=== PATIENT | female | born 1980 | race Caucasian/White ===

== ENCOUNTER 2017-05-21 12:20 | Emergency (ER) | payer OTHER ==
[~2017-05-21] VITALS: Ht 172.7 cm; Wt 121.2 kg
[~2017-05-21 12:20] MED LIST: ALDOMET250 MG PO; CEPHALEXIN500 MG PO; ENDOCET 5-3251 EACH PO; FERROUS SULFAT325 MG PO; FIORICET,ESG1 TABLET PO; IBUPROFEN800 MG PO; IRON; KEFLEX500 MG PO; NIFEDIPINE ER60 MG PO; PERCOCET 5/31 TABLET PO; PHENTERMINE H37.5 MG PO; PRENATAL TABLE1 EAC3 PO; ZOFRAN4 MG PO
[2017-05-21] MEDS ORDERED: NORCO 5/3251 TABLET PO (13:38)
[2017-05-21] MEDS ORDERED: MOTRIN600 MG PO (13:38)
[2017-05-21] MEDS ORDERED: AMOXICILLIN875 MG PO (13:38)
[2017-05-21 13:54] VITALS: BP 128/101
== END 2017-05-21 13:55 | disposition home or self-care (01) ==
LOC: EME 12:20
DX: K08.89 Other specified disorders of teeth and supporting structures (principal)
CPT/HCPCS: 99281; 99284

== ENCOUNTER 2017-11-27 17:04 | Inpatient (IN) | payer OTHER ==
[~2017-11-27] VITALS: Ht 172.7 cm; Wt 117.5 kg
[~2017-11-27 17:04] MED LIST changes: +AMOXICILLIN875 MG PO; +MOTRIN600 MG PO; +NORCO 5/3251 TABLET PO
[2017-11-27 18:19] LABS: HEMATOCRIT 38.1 % (36.0-46.0); HEMOGLOBIN 12.1 G/DL (11.9-15.5); MCH 24.5 PG (29.0-34.0); MCHC 31.8 G/DL (30.0-36.0); MCV 77.1 FL (83-99); PLATELET COUNT 292 K/uL (156-360); RBC DIS.WIDTH-CV 15.2 % (11.8-14.6); RBC DIS.WIDTH-SD 42.6 % (39-53); RED BLOOD COUNT 4.94 M/uL (3.80-5.20); WHITE BLOOD COUNT 9.4 K/uL (4.1-10.2)
[2017-11-27 18:29] LABS: CHLORIDE 108 mEq/L (99-109); POTASSIUM 3.4 mEq/L (3.7-5.4); SODIUM 141 mEq/L (136-147)
[2017-11-27 18:31] LABS: GLUCOSE 76 mg/dL (70-99)
[2017-11-27 18:34] LABS: CREATININE 0.7 mg/dL (0.6-1.3); GFR ESTIMATE (CALCULATED) > 59 mL/min/
[2017-11-27 18:35] LABS: UREA NITROGEN (BUN) 11 mg/dL (9-23)
[2017-11-27 18:43] LABS: QUANTITATIVE HCG < 4.0 MIU/ML
[2017-11-27] MEDS ORDERED: HYDROCHLOROTHIA25 MG PO (22:27)
[2017-11-27] MEDS ORDERED: ADVIL,NUPRIN,M200 MG PO (22:28)
[2017-11-27] MEDS ORDERED: TYLENOL EXTRA500 MG PO (22:28)
[2017-11-28 02:26] VITALS: BP 161/92
[2017-11-28 07:53] VITALS: BP 146/87
[2017-11-28 11:27] VITALS: BP 165/101
[2017-11-28 15:21] VITALS: BP 143/89
[2017-11-28 20:09] VITALS: BP 194/97
[2017-11-29 00:08] VITALS: BP 151/81
[2017-11-29 03:27] VITALS: BP 130/75
[2017-11-29 07:59] VITALS: BP 157/92
[2017-11-29] MEDS ORDERED: LEVETIRACETAM500 MG PO (10:02)
[2017-11-29] MEDS ORDERED: ZOLPIDEM TARTRAT5 MG PO (10:02)
[2017-11-29] MEDS ORDERED: ENDOCET 5-3251 EACH PO (10:02)
[2017-11-29] MEDS ORDERED: DEXAMETHASONE4 MG PO (10:02)
[2017-11-29] MEDS ORDERED: LABETALOL HCL100 MG PO (10:02)
[2017-11-29 16:16] VITALS: BP 161/92
[2017-11-29 20:58] VITALS: BP 168/80
[2017-11-29 23:11] VITALS: BP 139/69
[2017-11-30 04:53] VITALS: BP 139/79
[2017-11-30 06:10] LABS: HEMATOCRIT 36.2 % (36.0-46.0); HEMOGLOBIN 11.4 G/DL (11.9-15.5); MCH 24.4 PG (29.0-34.0); MCHC 31.5 G/DL (30.0-36.0); MCV 77.5 FL (83-99); PLATELET COUNT 282 K/uL (156-360); RBC DIS.WIDTH-CV 15.6 % (11.8-14.6); RBC DIS.WIDTH-SD 43.5 % (39-53); RED BLOOD COUNT 4.67 M/uL (3.80-5.20); WHITE BLOOD COUNT 12.7 K/uL (4.1-10.2)
[2017-11-30 06:46] LABS: ALBUMIN 3.6 G/DL (3.2-4.8); ALKALINE PHOSPHATASE 59 IU/L (3-129); ALT (GPT) 22 IU/L (3-49); AST (GOT) 15 IU/L (2-34); CHLORIDE 106 MEQ/L (99-109); CREATININE 0.6 MG/DL (0.6-1.3); GFR ESTIMATE (CALCULATED) > 59 mL/min/; SODIUM 137 MEQ/L (136-147); TOTAL BILIRUBIN 0.3 MG/DL (0.0-1.0); TOTAL PROTEIN 6.6 G/DL (6.4-8.3); UREA NITROGEN (BUN) 16 mg/dL (9-23)
[2017-11-30 06:51] LABS: GLUCOSE 123 mg/dL (70-99)
[2017-11-30 08:01] VITALS: BP 125/82
[2017-11-30 11:37] VITALS: BP 166/98
[2017-11-30 16:02] VITALS: BP 193/101
[2017-11-30 19:58] VITALS: BP 180/100
[2017-12-01] VITALS (7 sets, daily range): BP systolic 133–189; BP diastolic 75–111
[2017-12-02 03:33] VITALS: BP 161/91
[2017-12-02 07:45] VITALS: BP 180/90
[2017-12-02 10:40] VITALS: BP 137/65
[2017-12-02 15:57] VITALS: BP 128/87
[2017-12-02] MEDS ORDERED: LISINOPRIL10 MG PO (22:30)
[2017-12-02 23:29] VITALS: BP 145/80
[2017-12-03] VITALS (7 sets, daily range): BP systolic 130–169; BP diastolic 74–95
[2017-12-04 03:50] VITALS: BP 146/74
[2017-12-04 07:44] VITALS: BP 166/86
[2017-12-04 11:30] VITALS: BP 152/73
[2017-12-04 16:06] VITALS: BP 150/92
[2017-12-04 20:26] VITALS: BP 136/65
[2017-12-05 00:27] VITALS: BP 139/72
[2017-12-05 04:17] VITALS: BP 126/73
[2017-12-05 08:06] VITALS: BP 127/71
== END 2017-12-05 08:47 | disposition short-term general hospital (02) | DRG 54 ==
LOC: EME 17:04 → 3EAST 23:20 → EDOF 23:20 → ENRESERV 23:55 → 3EAST 11-28 01:57
PROVIDERS: Family Medicine
DX: C71.9 Malignant neoplasm of brain, unspecified (principal); G93.6 Cerebral edema; E66.9 Obesity, unspecified; H53.412 Scotoma involving central area, left eye; I10 Essential (primary) hypertension; D72.829 Elevated white blood cell count, unspecified; E87.6 Hypokalemia; F41.9 Anxiety disorder, unspecified; H53.40 Unspecified visual field defects; H54.62 Unqualified visual loss, left eye, normal vision right eye; K04.7 Periapical abscess without sinus; Z68.39 Body mass index [BMI] 39.0-39.9, adult; Z80.3 Family history of malignant neoplasm of breast; Z83.3 Family history of diabetes mellitus
CPT/HCPCS: 70450; 70496; 70553; 80048; 80053; 84702; 85027; 99281; 99285; J2060; J2270; J8540